=== PATIENT | male | born 1995 | race African-American/Black ===

== ENCOUNTER 2020-12-31 13:01 | Emergency (ER) | payer OTHER ==
[~2020-12-31] VITALS: Ht 203.2 cm; Wt 140.2 kg
[2020-12-31 13:17] VITALS: BP 155/91
[2020-12-31] MEDS ORDERED: ACET-73 PO (13:33)
--- NOTE | 2020-12-31 14:10 | NUR ---
Patient discharged to home in stable condition. Written and verbal after care instructions given. Patient verbalizes understanding of instruction.
== END 2020-12-31 14:10 | disposition home or self-care (01) ==
LOC: ER 13:49
DX: S63.592A Other specified sprain of left wrist, initial encounter (principal); J45.909 Unspecified asthma, uncomplicated; Z98.890 Other specified postprocedural states; Z88.6 Allergy status to analgesic agent; X58.XXXA Exposure to other specified factors, initial encounter; Y93.89 Activity, other specified; Y92.89 Other specified places as the place of occurrence of the external cause; Y99.8 Other external cause status
CPT/HCPCS: 73110

== ENCOUNTER 2022-02-19 13:37 | Emergency (ER) | payer OTHER ==
[~2022-02-19] VITALS: Ht 203.2 cm; Wt 145.1 kg
[~2022-02-19 13:37] MED LIST: ACET-73 PO
--- NOTE | 2022-02-19 14:33 | NUR ---
DR MCCARTNEY AT BEDSIDE FOR EVAL.
[2022-02-19 16:19] LABS: BILIRUBIN,URINE NEGATIVE (NEGATIVE); COLOR,URINE YELLOW (YELLOW); LEUKOCYTE ESTERASE ,URINE NEGATIVE (NEGATIVE); NITRITE, URINE NEGATIVE (NEGATIVE); PROTEIN,URINE NEGATIVE (NEGATIVE); UGLUCOSE NEGATIVE (NEGATIVE)
[2022-02-19] MEDS ORDERED: CEFTRIAXONE 500 MG VIAL IM ONE (16:30)
[2022-02-19] MEDS ORDERED: DOXYCYCLINE HYCLATE (100 MG) 100 MG TABLET PO ONE (16:30)
[2022-02-19] MEDS ORDERED: DOXY100T2 PO (16:37)
[2022-02-19] MEDS ORDERED: DOXYCYCLINE HYCLATE (100 MG) 100 MG TABLET ONE (17:14)
[2022-02-19] MEDS ORDERED: CEFTRIAXONE 500 MG VIAL ONE (17:14)
[2022-02-19] MEDS ORDERED: LIDOCAINE /MPF 1% VIAL 5 ML VIAL ONE (17:14)
--- NOTE | 2022-02-19 17:28 | NUR ---
SEEN AND EXAMINED BY DR MCCARTNEY, MEDICATED ORDERED. WAS GIVEN COPY OF ULTRASOUND RESULT AND LAB. D/C IN STABLE CONDITION.
[2022-02-19 17:30] VITALS: BP 135/87
== END 2022-02-19 17:30 | disposition home or self-care (01) ==
LOC: ER 13:47
DX: N50.812 Left testicular pain (principal); N43.3 Hydrocele, unspecified; N43.40 Spermatocele of epididymis, unspecified; J45.909 Unspecified asthma, uncomplicated; Z88.8 Allergy status to other drugs, medicaments and biological substances; Z79.1 Long term (current) use of non-steroidal anti-inflammatories (NSAID)
CPT/HCPCS: 99284; 96372; 76870; 87086; 81003; 87491; 87591; J0696; J3490

== ENCOUNTER 2023-10-14 15:54 | Emergency (ER) | payer BC, OTHER ==
[~2023-10-14] VITALS: Ht 203.2 cm; Wt 127.0 kg
[~2023-10-14 15:54] MED LIST changes: +DOXY100T2 PO
[2023-10-14 18:09] LABS: APPEARANCE,URINE CLEAR (CLEAR); BILIRUBIN,URINE NEGATIVE (NEGATIVE); BLOOD, URINE NEGATIVE Ery/uL (NEGATIVE); COLOR,URINE YELLOW (YELLOW); KETONES,URINE TRACE mg/dL (NEGATIVE); LEUKOCYTE ESTERASE ,URINE NEGATIVE (NEGATIVE); NITRITE, URINE NEGATIVE (NEGATIVE); PROTEIN,URINE NEGATIVE (NEGATIVE); UGLUCOSE NEGATIVE (NEGATIVE); UROBILINOGEN,URINE 0.2 EU/dL (0.2)
[2023-10-14 18:43] VITALS: BP 138/82; TEMP 98.4; O2SAT 99
== END 2023-10-14 18:44 | disposition home or self-care (01) ==
LOC: ER 15:59
DX: N50.812 Left testicular pain (principal); J45.909 Unspecified asthma, uncomplicated; Z88.6 Allergy status to analgesic agent; Z91.018 Allergy to other foods
CPT/HCPCS: 76870-TC

== ENCOUNTER 2024-03-21 09:14 | Emergency (ER) | payer BC ==
[~2024-03-21] VITALS: Ht 203.2 cm; Wt 149.7 kg
[2024-03-21 09:22] VITALS: TEMP 98.3
--- NOTE | 2024-03-21 09:25 | NUR ---
dysuria x2 days
--- NOTE | 2024-03-21 10:00 | NUR ---
URINE SAMPLE SENT TO LAB
[2024-03-21 11:58] LABS: APPEARANCE,URINE CLEAR (CLEAR); BILIRUBIN,URINE NEGATIVE (NEGATIVE); BLOOD, URINE NEGATIVE Ery/uL (NEGATIVE); COLOR,URINE YELLOW (YELLOW); KETONES,URINE NEGATIVE (NEGATIVE); LEUKOCYTE ESTERASE ,URINE TRACE (NEGATIVE); NITRITE, URINE NEGATIVE (NEGATIVE); PROTEIN,URINE NEGATIVE (NEGATIVE); UGLUCOSE NEGATIVE (NEGATIVE)
[2024-03-21 11:59] LABS: ADD URINE CULTURE NO; BACTERIA,URINE Rare /HPF (None Seen); RBC,URINE 0-2 /HPF (0-2); SQUAMOUS EPITHELIAL CELL,UR Few /HPF (None Seen)
[2024-03-21] MEDS ORDERED: CEPH-570 PO (12:03)
--- NOTE | 2024-03-21 12:03 | NUR ---
Patient discharged to home in stable condition. Written and verbal after care instructions given. Patient verbalizes understanding of instruction.
[2024-03-21 12:32] VITALS: BP 138/78; O2SAT 100
== END 2024-03-21 12:00 | disposition home or self-care (01) ==
LOC: ER 09:23
DX: N39.0 Urinary tract infection, site not specified (principal); R11.0 Nausea; J45.909 Unspecified asthma, uncomplicated; F12.10 Cannabis abuse, uncomplicated; F17.200 Nicotine dependence, unspecified, uncomplicated; Z91.09 Other allergy status, other than to drugs and biological substances; Z88.6 Allergy status to analgesic agent
CPT/HCPCS: 81001